=== PATIENT | male | born 1950 | race Caucasian/White ===

== ENCOUNTER 2020-07-30 10:42 | Inpatient (IN) | payer OTHER ==
[2020-07-30 11:38] LABS: Urine Blood NEGATIVE (NEG); Urine Glucose NEGATIVE (NEG); Urine Protein NEGATIVE (NEG); Urine Specific Gravity 1.025 (1.005-1.030); Urine pH 6.5 (5.0-7.0)
[2020-07-30 11:45] LABS: Absolute Lymphocytes (CBC) 0.4 K/uL (0.7-4.9); Basophils % 0.3 % (0-1.3); Hematocrit 33.8 % (39.6-49.0); Lymphocytes % 4.9 % (15.3-44.8); MPV 7.7 fL (7.6-11.3); RBC Red Blood Cell Count 4.24 M/uL (4.33-5.43)
[2020-07-30] MEDS ORDERED: Levofloxacin500mg IV 500 MG/100 ML BAG IV ONE (11:49)
[2020-07-30] MEDS ORDERED: LEVALBUTEROL 1.25 MG/3 ML NEB ONE (11:49)
[2020-07-30] MEDS ORDERED: IPRATROPIUM BROM 0.5MG/2.5ML ONE (11:49)
[2020-07-30] MEDS ORDERED: METHYLPREDNISOLONE 125 MG INJ ONE (11:49)
[2020-07-30] MEDS ORDERED: NA CHLORIDE 0.9% 1,000 ML ONE ×2 (11:50→12:31)
[2020-07-30 12:01] LABS: ALT/SGPT 15 U/L (12-78); AST/SGOT 24 U/L (15-37); Albumin 3.2 g/dL (3.4-5.0); Alkaline Phosphatase 130 U/L (45-117); BUN Blood Urea Nitrogen 8 mg/dL (7-18); Bicarbonate 24 mmol/L (21-32); Bilirubin Direct < 0.1 mg/dL (0-0.2); Bilirubin Total 0.5 mg/dL (0.2-1.0); Glucose Level 126 mg/dL (74-106); Lipase 32 U/L (73-393); Magnesium 1.9 mg/dL (1.8-2.4); NT PRO-BNP 16402 pg/mL (<125); Protein, Total 6.7 g/dL (6.4-8.2); Sodium Level 137 mmol/L (136-145); Troponin (Emerg Dept Use Only) 0.06 ng/mL (0.0-0.045)
[2020-07-30 12:20] LABS: Blood Morphology Comment NOT SEEN (NOT SEEN); Platelet Estimate ADEQ
--- NOTE | 2020-07-30 12:20 | EDPHYS ---
Physician Documentation [facility] Name: Lucian Colon Age: 69 yrs Sex: Male : 1950 Arrival Date: 07/30/2020 Time: 10:45 Bed 2 Private MD: CASSANDRA Physician Dontrell Mccallum HPI: 07/30 11:14 This 69 yrs old Male presents to ER via EMS with complaints of weak and karine coughing. 11:14 The patient has shortness of breath with light activity. Onset: The symptoms/episode karine began/occurred 2 day(s) ago. Duration: The symptoms are continuous, and are steadily getting worse. The patient's shortness of breath is aggravated by coughing, is alleviated by elevating head. The patient or guardian reports cough, described as mild, described as moderate, difficulty breathing, flu symptoms, arthralgias, myalgias, no appetite. Modifying factors: The symptoms are alleviated by nothing. the symptoms are aggravated by nothing. Associated signs and symptoms: Pertinent positives: non-productive cough, dizziness. Severity of symptoms: At their worst the symptoms were moderate in the emergency department the symptoms have improved mildly. Historical: - Allergies: 11:07 No Known Allergies; jl7 - Home Meds: 11:07 folic acid 1 mg Oral tab 1 tab once daily [Active]; Chantix 1 mg oral tab 1 tab 2 times jl7 per day [Active]; citalopram 20 mg tab 1 tab once daily [Active]; [place] 10-325 mg Oral tab 1 tab every 6 hours [Active]; Plavix 75 mg Oral tab 1 tab once daily [Active]; 11:09 dronabinol 2.5 mg oral cap 2 caps once daily [Active]; pantoprazole 40 mg oral TbEC 1 jl7 tab once daily [Active]; Combivent Inhl [Active]; nadolol 20 mg oral tab 1 tab once daily [Active]; - PMHx: 11:07 COPD; Cancer; Liver; Hepatitis; C; jl7 11:09 Hypertension; Cirrhosis; jl7 - PSHx: 11:07 Heart stents; jl7 - Immunization history:: Adult Immunizations not up to date. - Social history:: Smoking status: Patient reports the use of cigarette tobacco products, smokes one-half pack cigarettes per day. - Family history:: not pertinent. ROS: 11:14 Constitutional: Negative for fever, chills, and weight loss, Eyes: Negative for injury, karine pain, redness, and discharge, ENT: Negative for injury, pain, and discharge, Neck: Negative for injury, pain, and swelling, Abdomen/GI: Negative for abdominal pain, nausea, vomiting, diarrhea, and constipation, Back: Negative for injury and pain, : Negative for injury, bleeding, discharge, and swelling, MS/Extremity: Negative for injury and deformity, Skin: Negative for injury, rash, and discoloration, Neuro: Negative for headache, weakness, numbness, tingling, and seizure, Psych: Negative for depression, anxiety, suicide ideation, homicidal ideation, and hallucinations, Allergy/Immunology: Negative for hives, rash, and allergies, Endocrine: Negative for neck swelling, polydipsia, polyuria, polyphagia, and marked weight changes, Hematologic/Lymphatic: Negative for swollen nodes, abnormal bleeding, and unusual bruising. 11:14 Cardiovascular: Positive for chest pain. 11:14 Respiratory: Positive for cough, "sounds productive", shortness of breath, at rest. wheezing, inspiratory, expiratory. Exam: 11:14 Constitutional: This is a well developed, well nourished patient who is awake, alert, karine and in no acute distress. Head/Face: Normocephalic, atraumatic. Eyes: Pupils equal round and reactive to light, extra-ocular motions intact. Lids and lashes normal. Conjunctiva and sclera are non-icteric and not injected. Cornea within normal limits. Periorbital areas with no swelling, redness, or edema. ENT: Nares patent. No nasal discharge, no septal abnormalities noted. Tympanic membranes are normal and external auditory canals are clear. Oropharynx with no redness, swelling, or masses, exudates, or evidence of obstruction, uvula midline. Mucous membranes moist. Neck: Trachea midline, no thyromegaly or masses palpated, and no cervical lymphadenopathy. Supple, full range of motion without nuchal rigidity, or vertebral point tenderness. No Meningismus. Chest/axilla: Normal chest wall appearance and motion. Nontender with no deformity. No lesions are appreciated. Abdomen/GI: Soft, non-tender, with normal bowel sounds. No distension or tympany. No guarding or rebound. No evidence of tenderness throughout. Back: No spinal tenderness. No costovertebral tenderness. Full range of motion. Male : Normal genitalia with no discharge or lesions. Skin: Warm, dry with normal turgor. Normal color with no rashes, no lesions, and no evidence of cellulitis. MS/ Extremity: Pulses equal, no cyanosis. Neurovascular intact. Full, normal range of motion. Neuro: Awake and alert, GCS 15, oriented to person, place, time, and situation. Cranial nerves II-XII grossly intact. Motor strength 5/5 in all extremities. Sensory grossly intact. Cerebellar exam normal. Normal gait. Psych: Awake, alert, with orientation to person, place and time. Behavior, mood, and affect are within normal limits. 11:14 Cardiovascular: Rate: tachycardic, Rhythm: regular, Pulses: Pulses are 4+ in bilateral radial, brachial, femoral, popliteal, posterior tibial and and dorsalis pedis arteries.. Heart sounds: normal, Edema: is not appreciated, JVD: is not appreciated. 11:14 Musculoskeletal/extremity: DVT Exam: No signs of deep vein thrombosis. no pain, no swelling, no tenderness, negative Homans' sign noted on exam, no appreciated bluish discoloration, no erythema, no increased warmth. 14:41 ECG was reviewed by the Attending Physician. [facility] 14:43 ECG was reviewed by the Attending Physician. [facility] Vital Signs: 10:57 BP 171 / 97; Pulse 107; Resp 21 S; Temp 97.8(O); Pulse Ox 96% on R/A; Weight 58.97 kg jl7 (R); Height 5 ft. 6 in. (167.64 cm) (R); Pain 0/10; 11:30 BP 155 / 83; Pulse 83; Resp 19 S; Pulse Ox 89% on R/A; Pain 0/10; jl7 12:32 BP 147 / 92; Pulse 87; Resp 21 S; Pulse Ox 100% on 1 lpm NC; jl7 13:30 BP 154 / 80; Pulse 101; Resp 20; Pulse Ox 95% 1 lpm ; jl7 14:00 BP 171 / 91; Pulse 109; Resp 32 S; Pulse Ox 91% on Non-rebreather mask; jl7 14:15 BP 160 / 107; Pulse 104; Resp 29; Pulse Ox 90% on Non-rebreather mask; jl7 14:30 BP 149 / 84; Pulse 108; Resp 27 A; Pulse Ox 94% on BiPAP; jl7 15:00 BP 139 / 80; Pulse 107; Resp 25; Pulse Ox 96% on BiPAP; jl7 16:00 BP 141 / 85; Pulse 90; Resp 24; Pulse Ox 99% on BiPAP; jl7 17:00 BP 135 / 84; Pulse 85; Resp 19; Pulse Ox 100% on BiPAP; 7 10:57 Body Mass Index 20.98 (58.97 kg, 167.64 cm) 7 MDM: 10:45 Patient medically screened. [facility] 11:19 Differential diagnosis: Anxiety Reaction asthma, Bronchitis CHF exacerbation, Chronic karine Obstructive Pulmonary Disease obstructed airway, bronchitis, flu, URI, pneumonia, pulmonary edema, reactive airway disease, Sepsis Unstable Angina. Antibiotic administration: Levaquin given. Differential Diagnosis sepsis. The patient's Wells Deep Vein Thrombosis Score was calculated as follows: Heart Rate >100 BPM (1.5 Pts) Total Score: 0-2 Pts- Low Risk. The patient's pulmonary embolism risk score was calculated as follows: the patients heart rate is greater than 100 beats per minute (1.5 Pts) Total Score: 0-2 points. This patient was found to be at low risk for a pulmonary embolism by using the Well's assessment criteria. Immunization status: Pneumococcal vaccine: Influenza vaccine: Data reviewed: vital signs, nurses notes, lab test result(s), EKG, radiologic studies, plain films. Data interpreted: cnc service engineer: rate is 107 beats/min, rhythm is regular, Pulse oximetry: on room air is 96 %. Test interpretation: by ED physician or midlevel provider: ECG, plain radiologic studies. 07/30 11:07 Order name: Basic Metabolic Panel; Complete Time: 12:02 [facility] 07/30 11:07 Order name: CBC with Diff; Complete Time: 13:06 [facility] 07/30 11:07 Order name: LFT's; Complete Time: 12:02 [facility] 07/30 11:07 Order name: Magnesium; Complete Time: 12:02 [facility] 07/30 11:07 Order name: NT PRO-BNP; Complete Time: 12:02 [facility] 07/30 11:07 Order name: Troponin (emerg Dept Use Only); Complete Time: 12:02 [facility] 07/30 11:07 Order name: Lipase; Complete Time: 12:02 [facility] 07/30 11:07 Order name: Blood Culture Adult (2) [facility] 07/30 11:07 Order name: Lactate; Complete Time: 12:16 [facility] 07/30 11:36 Order name: Urine Dipstick--Ancillary (enter results); Complete Time: 12:02 07/30 12:20 Order name: Manual Differential; Complete Time: 13:06 [facility] 07/30 14:41 Order name: Lactate Sepsis 2 HR Follow-up; Complete Time: 14:55 [facility] 07/30 14:54 Order name: COVID-19 [facility] 07/30 15:29 Order name: CORONAVIRUS [facility] 07/30 11:07 Order name: XRAY Chest (1 view); Complete Time: 13:06 [facility] 07/30 12:32 Order name: Chest Angio [facility] 07/30 14:57 Order name: BIPAP 07/30 16:25 Order name: SARS-COV-2 RT PCR [facility] 07/30 11:07 Order name: EKG; Complete Time: 11:08 [facility] 07/30 11:07 Order name: Cardiac monitoring; Complete Time: 11:11 [facility] 07/30 11:07 Order name: EKG - Nurse/Tech; Complete Time: 12:11 [facility] 07/30 11:07 Order name: IV Saline Lock; Complete Time: 12:11 [facility] 07/30 11:07 Order name: Labs collected and sent; Complete Time: 12:11 [facility] 07/30 11:07 Order name: O2 Per Protocol; Complete Time: 11:11 [facility] 07/30 11:07 Order name: O2 Sat Monitoring; Complete Time: 11:11 [facility] 07/30 11:07 Order name: Urine Dipstick-Ancillary (obtain specimen); Complete Time: 11:31 [facility] 07/30 14:38 Order name: Justin; Complete Time: 14:38 [facility] 07/30 14:39 Order name: EKG - Nurse/Tech; Complete Time: 14:39 [facility] 07/30 14:39 Order name: EKG; Complete Time: 14:39 EC:41 Rate is 83 beats/min. QT interval is normal. No Q waves. T waves are Normal. No ST karine changes noted. Clinical impression: NSR w/ Non-specific ST/T Changes and No evidence of ischemia. Interpreted by me. Reviewed by me. 14:43 Rate is 96 beats/min. Rhythm is regular. QRS [place] is Normal. VT interval is normal. QRS karine interval is normal. QT interval is normal. No Q waves. T waves are Normal. No ST changes noted. Clinical impression: NSR w/ Non-specific ST/T Changes and No evidence of ischemia. Interpreted by me. Reviewed by me. Administered Medications: 11:50 Drug: NS 0.9% 500 ml Route: IV; Rate: bolus; Site: left forearm; jl7 12:50 Follow up: Response: No adverse reaction; IV Status: Completed infusion; IV Intake: jl7 500ml 11:50 Drug: NS 0.9% 1000 ml Route: IV; Rate: 125 ml/hr; Site: left forearm; jl7 11:50 Drug: SOLU-Medrol 2 mg/kg Route: IVP; Site: left forearm; jl7 12:00 Follow up: Response: No adverse reaction 7 11:55 Drug: levofloxacin 500 mg Volume: 100 ml; Route: IVPB; Infused Over: 60 mins; Site: jl7 left forearm; 12:55 Follow up: Response: No adverse reaction; IV Status: Completed infusion jl7 12:00 Drug: Xopenex 1.25 mg Route: Inhalation; jl7 12:26 Follow up: Response: No adverse reaction 7 12:00 Drug: AtroVENT Aerosol 0.5 mg Route: Inhalation; jl7 12:26 Follow up: Response: No adverse reaction 7 12:25 Drug: NS 0.9% 1000 ml Route: IV; Rate: 1 bolus; Site: left forearm; jl7 13:45 Follow up: IV Status: Completed infusion; IV Intake: 1000ml jl7 14:10 Drug: Lovenox 50 mg Route: Sub-Q; Site: abdomen; jl7 17:07 Follow up: Response: No adverse reaction jl7 14:10 Drug: Lasix 40 mg Route: IVP; Site: left forearm; jl7 17:07 Follow up: Response: No adverse reaction jl7 14:15 Drug: Pepcid 20 mg Route: IVP; Site: left forearm; jl7 17:08 Follow up: Response: No adverse reaction jl7 14:15 Drug: Nitro-Bid Ointment 2 % 1 inches Route: Transdermal; Site: anterior chest wall; jl7 14:20 Drug: morphine 2 mg Route: IVP; Site: left forearm; jl7 14:30 Follow up: Response: No adverse reaction; Pain is decreased jl7 14:20 Drug: Zofran (Ondansetron) 4 mg Route: IVP; Site: left forearm; jl7 17:07 Follow up: Response: No adverse reaction jl7 Disposition: 07/30/20 12:19 Hospitalization ordered by Prince Paige for Inpatient Admission. Preliminary diagnosis are Pneumonia, unspecified organism, Chronic obstructive pulmonary disease with (acute) exacerbation, Anorexia, Tobacco abuse counseling, Tobacco use, Essential (primary) hypertension, Systolic (congestive) heart failure. - Bed requested for Telemetry/MedSurg (Inpatient). - Status is Inpatient Admission. iw - Condition is Fair. - Problem is new. - Symptoms have improved. Signatures: Dispatcher [employer] Jerilyn Escoto RN RN dw Anderson, Corey, MD MD cha Williams, Irene, RN RN iw Leal, Jahala, RN RN jl7 Corrections: (The following items were deleted from the chart) 12:24 12:19 Hospitalization Ordered by Nicho Chandler MD for Inpatient Admission. Preliminary [facility] diagnosis is Pneumonia, unspecified organism; Chronic obstructive pulmonary disease with (acute) exacerbation; Anorexia; Tobacco abuse counseling; Tobacco use. Bed requested for Telemetry/MedSurg (Inpatient). Status is Inpatient Admission. Condition is Fair. Problem is new. Symptoms have improved. [facility] 14:34 12:24 07/30/2020 12:19 Hospitalization Ordered by Prince Paige HILL for Inpatient karine Admission. Preliminary diagnosis is Pneumonia, unspecified organism; Chronic obstructive pulmonary disease with (acute) exacerbation; Anorexia; Tobacco abuse counseling; Tobacco use. Bed requested for Telemetry/MedSurg (Inpatient). Status is Inpatient Admission. Condition is Fair. Problem is new. Symptoms have improved. [facility] 16:46 14:34 07/30/2020 12:19 Hospitalization Ordered by Prince Paige [facility]ILL for Inpatient dw Admission. Preliminary diagnosis is Pneumonia, unspecified organism; Chronic obstructive pulmonary disease with (acute) exacerbation; Anorexia; Tobacco abuse counseling; Tobacco use; Essential (primary) hypertension; Systolic (congestive) heart failure. Bed requested for Telemetry/MedSurg (Inpatient). Status is Inpatient Admission. Condition is Fair. Problem is new. Symptoms have improved. karine 17:54 16:46 07/30/2020 12:19 Hospitalization Ordered by Prince Paige [facility] for Inpatient iw Admission. Preliminary diagnosis is Pneumonia, unspecified organism; Chronic obstructive pulmonary disease with (acute) exacerbation; Anorexia; Tobacco abuse counseling; Tobacco use; Essential (primary) hypertension; Systolic (congestive) heart failure. Bed requested for Telemetry/MedSurg (Inpatient). Status is Inpatient Admission. Condition is Fair. Problem is new. Symptoms have improved. dw
--- NOTE | 2020-07-30 12:20 | ER ---
Nurse's Notes [facility] Name: Lucian Colon Age: 69 yrs Sex: Male : 1950 Arrival Date: 07/30/2020 Time: 10:45 Bed 2 Private MD: Diagnosis: Pneumonia, unspecified organism;Chronic obstructive pulmonary disease with (acute) exacerbation;Anorexia;Tobacco abuse counseling;Tobacco use;Essential (primary) hypertension;Systolic (congestive) heart failure Presentation: 07/30 10:57 Chief complaint: EMS states: SOB started this morning; tested negative for COVID 2 days jl7 ago. Coronavirus screen: Client denies travel out of the [place] in the last 14 days. cough unrelated to allergies, shortness of breath, The client reports previous COVID testing was negative. Date of collection: July 28, 2020. Ebola Screen: No symptoms or risks identified at this time. Initial Sepsis Screen: Does the patient meet any 2 criteria? No. Patient's initial sepsis screen is negative. Does the patient have a suspected source of infection? No. Patient's initial sepsis screen is negative. Risk Assessment: Do you want to hurt yourself or someone else? Patient reports no desire to harm self or others. Onset of symptoms was July 30, 2020. Care prior to arrival: Medication(s) given: Albuterol Neb Atrovent Neb. Transition of care: patient was not received from another setting of care. 10:57 Method Of Arrival: EMS: [facility] jl7 10:57 Acuity: LJ 2 jl7 Triage Assessment: 10:45 General: Appears in no apparent distress. uncomfortable, Behavior is calm, cooperative, jl7 appropriate for age. Pain: Denies pain. Neuro: Level of Consciousness is awake, alert, obeys commands, Oriented to person, place, time, situation. Cardiovascular: Patient's skin is warm and dry. Chest pain is denied. Respiratory: Airway is patent Respiratory effort is even, labored, Respiratory pattern is symmetrical, tachypnea Breath sounds are diminished bilaterally. Derm: Skin is pink, warm \T\ dry. Historical: - Allergies: 11:07 No Known Allergies; jl7 - Home Meds: 11:07 folic acid 1 mg Oral tab 1 tab once daily [Active]; Chantix 1 mg oral tab 1 tab 2 times jl7 per day [Active]; citalopram 20 mg tab 1 tab once daily [Active]; [place] 10-325 mg Oral tab 1 tab every 6 hours [Active]; Plavix 75 mg Oral tab 1 tab once daily [Active]; 11:09 dronabinol 2.5 mg oral cap 2 caps once daily [Active]; pantoprazole 40 mg oral TbEC 1 jl7 tab once daily [Active]; Combivent Inhl [Active]; nadolol 20 mg oral tab 1 tab once daily [Active]; - PMHx: 11:07 COPD; Cancer; Liver; Hepatitis; C; jl7 11:09 Hypertension; Cirrhosis; jl7 - PSHx: 11:07 Heart stents; jl7 - Immunization history:: Adult Immunizations not up to date. - Social history:: Smoking status: Patient reports the use of cigarette tobacco products, smokes one-half pack cigarettes per day. - Family history:: not pertinent. Screenin:45 Abuse screen: Denies threats or abuse. Denies injuries from another. Nutritional jl7 screening: No deficits noted. Tuberculosis screening: No symptoms or risk factors identified. Fall Risk IV access (20 points). Total Davies Fall Scale indicates No Risk (0-24 pts). Assessment: 10:45 General: See triage assessment. Daughter at bedside. jl7 12:43 Reassessment: Hospitalist at bedside assessing pt. jl7 13:00 Reassessment: Patient appears in no apparent distress at this time. Patient and/or jl7 family updated on plan of care and expected duration. Pain level reassessed. Patient is alert, oriented x 3, equal unlabored respirations, skin warm/dry/pink. Patient denies pain at this time. 14:00 Reassessment: Pt transported to CT via stretcher, it help desk technician returned immediately with pt jl7 c/o difficulty breathing. Pt appeared distressed, pulse ox at 82% and decreasing, placed pt on nonrebreather. Pt denies chest pain. Notified Dr. Mccallum, see orders for orders. Vital Signs: 10:57 BP 171 / 97; Pulse 107; Resp 21 S; Temp 97.8(O); Pulse Ox 96% on R/A; Weight 58.97 kg jl7 (R); Height 5 ft. 6 in. (167.64 cm) (R); Pain 0/10; 11:30 BP 155 / 83; Pulse 83; Resp 19 S; Pulse Ox 89% on R/A; Pain 0/10; jl7 12:32 BP 147 / 92; Pulse 87; Resp 21 S; Pulse Ox 100% on 1 lpm NC; jl7 13:30 BP 154 / 80; Pulse 101; Resp 20; Pulse Ox 95% 1 lpm ; jl7 14:00 BP 171 / 91; Pulse 109; Resp 32 S; Pulse Ox 91% on Non-rebreather mask; jl7 14:15 BP 160 / 107; Pulse 104; Resp 29; Pulse Ox 90% on Non-rebreather mask; jl7 14:30 BP 149 / 84; Pulse 108; Resp 27 A; Pulse Ox 94% on BiPAP; jl7 15:00 BP 139 / 80; Pulse 107; Resp 25; Pulse Ox 96% on BiPAP; jl7 16:00 BP 141 / 85; Pulse 90; Resp 24; Pulse Ox 99% on BiPAP; jl7 17:00 BP 135 / 84; Pulse 85; Resp 19; Pulse Ox 100% on BiPAP; jl7 10:57 Body Mass Index 20.98 (58.97 kg, 167.64 cm) jl7 ED Course: 10:45 Patient arrived in ED. iw 10:45 Dontrell Mccallum MD is Attending Physician. karine 10:45 Arm band placed on right wrist. jl7 10:45 Patient has correct armband on for positive identification. Placed in gown. Bed in low jl7 position. Call light in reach. Side rails up X2. telephone collector on. Pulse ox on. NIBP on. Warm blanket given. 10:50 Tia Hernandez RN is Primary Nurse. jl7 11:01 Triage completed. jl7 11:32 Inserted saline lock: 20 gauge in left forearm, using aseptic technique. Blood jl7 collected. 11:32 Initial lab(s) drawn, by dc, sent to lab. First set of blood cultures drawn by me. jl7 11:42 XRAY Chest (1 view) In Process Unspecified. EDMS 11:50 Second set of blood cultures drawn by me. jl7 12:18 Nicho Chandler MD is Hospitalizing Provider. karine 12:24 Prince Gibson MD is Hospitalizing Provider. karine 14:05 EKG done, by ED staff, reviewed by Dontrell Mccallum MD. dh3 14:30 Justin cath inserted, using sterile technique, 16 Fr., by dc, balloon inflated, to jl7 gravity drainage. 17:08 Radiology exam delayed due to pt unable to lay flat at all. pt diaphoretic when trying mw3 to lay down and O2 dropped into 80's. 17:53 No provider procedures requiring assistance completed. Patient admitted, IV remains in iw place. Administered Medications: 11:50 Drug: NS 0.9% 500 ml Route: IV; Rate: bolus; Site: left forearm; jl7 12:50 Follow up: Response: No adverse reaction; IV Status: Completed infusion; IV Intake: jl7 500ml 11:50 Drug: NS 0.9% 1000 ml Route: IV; Rate: 125 ml/hr; Site: left forearm; jl7 11:50 Drug: SOLU-Medrol 2 mg/kg Route: IVP; Site: left forearm; jl7 12:00 Follow up: Response: No adverse reaction jl7 11:55 Drug: levofloxacin 500 mg Volume: 100 ml; Route: IVPB; Infused Over: 60 mins; Site: jl7 left forearm; 12:55 Follow up: Response: No adverse reaction; IV Status: Completed infusion jl7 12:00 Drug: Xopenex 1.25 mg Route: Inhalation; jl7 12:26 Follow up: Response: No adverse reaction jl7 12:00 Drug: AtroVENT Aerosol 0.5 mg Route: Inhalation; jl7 12:26 Follow up: Response: No adverse reaction jl7 12:25 Drug: NS 0.9% 1000 ml Route: IV; Rate: 1 bolus; Site: left forearm; jl7 13:45 Follow up: IV Status: Completed infusion; IV Intake: 1000ml jl7 14:10 Drug: Lovenox 50 mg Route: Sub-Q; Site: abdomen; jl7 17:07 Follow up: Response: No adverse reaction jl7 14:10 Drug: Lasix 40 mg Route: IVP; Site: left forearm; jl7 17:07 Follow up: Response: No adverse reaction jl7 14:15 Drug: Pepcid 20 mg Route: IVP; Site: left forearm; jl7 17:08 Follow up: Response: No adverse reaction jl7 14:15 Drug: Nitro-Bid Ointment 2 % 1 inches Route: Transdermal; Site: anterior chest wall; jl7 14:20 Drug: morphine 2 mg Route: IVP; Site: left forearm; jl7 14:30 Follow up: Response: No adverse reaction; Pain is decreased jl7 14:20 Drug: Zofran (Ondansetron) 4 mg Route: IVP; Site: left forearm; jl7 17:07 Follow up: Response: No adverse reaction jl7 Intake: 12:50 IV: 500ml; Total: 500ml. jl7 13:45 IV: 1000ml; Total: 1500ml. jl7 Outcome: 12:19 Decision to Hospitalize by Provider. karine 17:53 Admitted to Med/surg accompanied by nurse, via stretcher, room 213, with oxygen, with iw chart. 17:53 Condition: good 17:53 Discharge instructions given to patient, Instructed on the need for admit, Demonstrated understanding of instructions. 17:54 Patient left the ED. iw Signatures: Dispatcher [employer] EDDontrell Benson MD MD cha Williams, Irene RN IGGY Tia Hernandez RN RN [place] [facility] Yusra Sanchez 3
--- NOTE | 2020-07-30 12:26 | RAD REPORT ---
EXAM DESCRIPTION: RAD - Chest Single View - 07/30/2020 11:42 am CLINICAL HISTORY: COUGH Chest pain. COMPARISON: No comparisons FINDINGS: Portable technique limits examination quality. Prominent emphysematous pattern is present bilaterally with moderate interstitial prominence. Interst itial opacities could indicate a chronic bronchitis or viral bronchitis. The heart is normal in size. No displaced fractures.
[2020-07-30] MEDS ORDERED: FAMOTIDINE 20 MG/2 ML VIAL IV ONE (12:50)
[2020-07-30] MEDS ORDERED: ENOXAPARIN 60 MG/0.6 ML SQ ONE (12:51)
--- NOTE | 2020-07-30 13:15 | P.HP ---
Certification for Inpatient Patient admitted to: Inpatient With expected LOS: >2 Midnights Practitioner: I am a practitioner with admitting privileges, knowledge of patient current condition, hospital course, and medical plan of care. Services: Services provided to patient in accordance with Admission requirements found in Title 42 Section 412.3 of the Code of Federal Regulations Patient History Date of Service: 07/31/20 Reason for admission: shortness of breath History of Present Illness: Patient is a 69-year-old male with a known past medical history of tobacco smoking, COPD, liver disease diagnosed 4 years ago and previously on chemotherapy. He present to the ER accompanied by daughter with an acute onset of shortness of breath. Patient states that he has been experiencing some generalized malaise and was getting easy fatigue. The symptoms progressed where he could no longer move out of bed without getting severely short of breath. Other associated symptoms include chills and possibly subjective fever. He has not noticed a drastic change from his usual cough. Patient is an active smoker and smokes daily although he is now down to < 1 ppd. He follows up with his PCP and oncologist Amie Raymond at [facility]. Daughter states that they are currently considering hospice care but this has not been finalized yet as patient just recently moved in with her. Allergies No Known Allergies Allergy (Unverified 07/30/20 18:09) Home Medications: Aspirin [Aspirin EC 325 MG] 325 mg PO DAILY 07/30/20 Clopidogrel Bisulfate [Plavix] 75 mg PO DAILY 07/30/20 Cyanocobalamin [Vitamin B-12] 1,000 mcg PO DAILY 07/30/20 Hydrocodone 10/APAP 325 [[place] 10/325] 1 tab PO Q6H PRN 07/30/20 Ipratropium/Albuterol Sulfate [Combivent Respimat Inhal [place]] 4 gm IH PRN PRN 07/30/20 Pantoprazole [Protonix Tab] 40 mg PO DAILY 07/30/20 RX: Folic Acid 1 mg PO DAILY 07/30/20 dronabinoL [Dronabinol] 2.5 mg PO BID 07/30/20 nadoloL [Nadolol] 20 mg PO DAILY 07/30/20 Physical Examination - Physical Exam General: Cachectic, Moderate distress, Other (visibly winded) HEENT: Atraumatic, Normocephalic, Other (temporal wasting), EOMI Neck: Supple Respiratory: Diminished, Crackles/rales, Other (No wheezing heard but crackles in the R lung simons) Cardiovascular: No edema, Normal pulses, Regular rate/rhythm, Normal S1 S2 Musculoskeletal: Other (bilateral lower extremity sarcopenia) Neurological: Normal speech, Sensation intact, Normal affect - Studies Laboratory Data (last 24 hrs) 07/30/20 11:32: WBC 8.0, Hgb 10.9 L, Hct 33.8 L, Plt Count 333 07/30/20 11:32: Sodium 137, Potassium 4.0, BUN 8, Creatinine 0.52 L, Glucose 126 H, Magnesium 1.9, Total Bilirubin 0.5, AST 24, ALT 15, Alkaline Phosphatase 130 H, Lipase 32 L Assessment and Plan - Problems (Diagnosis) (1) Acute hypoxemic respiratory failure Current Visit: Yes Status: Acute (2) COPD exacerbation Current Visit: Yes Status: Acute (3) Liver cancer Current Visit: Yes Status: Acute (4) Tobacco smoker, 1 pack of cigarettes or less per day Current Visit: Yes Status: Acute (5) Severe protein-calorie malnutrition (Gallagher: less than 60% of standard weight) Current Visit: Yes Status: Acute - Advance Directives Does patient have a Living Will: No Does patient have a Durable POA for Healthcare: No Physician Review Additional Text: Assessment 69 year old male with a PMH of tobacco smoking, COPD, liver malignancy admitted with acute hypoxemic respiratory failure. CXR is concerning for viral bronchitis vs. chronic bronchitis. He is being admitted with a working ileana gnosis of COPD exacerbation. Acute hypoxemic respiratory failure Tobacco smoking COPD exacerbation Lactic acidosis Liver cancer Severe malnutrition PLAN: Admit inpatient with telemetry CTA chest and echocardiogram to r/o PE and pulmonary HTN respectively. Patient received a 1 L bolus of NS Trend lactic acid every 4 hours Follow up blood cultures Trend troponin every 6 hours Obtain an EKG Continue levofloxacin, solumedrol and duoNebs I will order a nutrition and hospice consult while in-house. Continue home dose of dronabinol
[2020-07-30] MEDS ORDERED: FUROSEMIDE 40 MG/4 ML VIAL ONE (14:06)
[2020-07-30] MEDS ORDERED: ONDANSETRON 4 MG/2 ML VIAL ONE (14:11)
[2020-07-30] MEDS ORDERED: NITROGLYCERIN 1 GM PKT TD ONE (14:11)
[2020-07-30] MEDS ORDERED: MORPHINE 2 MG/ML SYR ONE (14:11)
[2020-07-30] MEDS ORDERED: ASPIRIN 81 MG CHEWABLE TABLET ONE (17:35)
[2020-07-30] MEDS: ALBUTEROL 2.5 MG/3 ML NEB SOL NEB SCH ×2 (18:11→20:00)
[2020-07-30] MEDS: IPRATROPIUM BROM 0.5MG/2.5ML NEB SCH ×2 (18:11→20:00)
[2020-07-30] MEDS: METHYLPREDNISOLONE 125 MG INJ IV SCH (18:27)
[2020-07-30 22:53] VITALS: BMI 20.9
[2020-07-30] MEDS ORDERED: ACETAMINOPHEN 500 MG TAB PO PRN (23:19)
[2020-07-30] MEDS: ESZOPICLONE 1 MG TAB PO PRN (23:44)
[2020-07-31] MEDS: METHYLPREDNISOLONE 125 MG INJ IV SCH ×3 (00:05→16:16)
[2020-07-31] MEDS: ALBUTEROL 2.5 MG/3 ML NEB SOL NEB SCH ×6 (00:26→20:50)
[2020-07-31] MEDS: IPRATROPIUM BROM 0.5MG/2.5ML NEB SCH ×6 (00:26→20:50)
[2020-07-31] MEDS ORDERED: Levofloxacin 750mg IV 750 MG/150 ML BAG IV SCH (07:00)
--- NOTE | 2020-07-31 07:25 | EKG ---
Test Date: 2020-07-30 Test Time: 13:11:20 Architecture Manager: LOC MEASUREMENT RESULTS: Intervals: Rate: 88 VA: 132 QRSD: 148 QT: 454 QTc: 549 [place]: P: 64 VA: 132 QRS: 78 T: 45 INTERPRETIVE STATEMENTS: Normal sinus rhythm Possible Left atrial enlargement Nonspecific intraventricular block Abnormal ECG Compared to ECG 07/30/2020 11:17:59 Left ventricular hypertrophy no longer present Myocardial infarct finding no longer present Electronically Signed On 07-31-20 07:23:24 WELDER MACHINE OPERATOR by Jon Aburto
--- NOTE | 2020-07-31 07:25 | EKG ---
Test Date: 2020-07-30 Test Time: 11:17:59 Toll Line Inspector: LOC MEASUREMENT RESULTS: Intervals: Rate: 83 VT: 154 QRSD: 102 QT: 400 QTc: 470 [place]: P: 67 VT: 154 QRS: 76 T: 57 INTERPRETIVE STATEMENTS: Normal sinus rhythm Moderate voltage criteria for LVH, may be normal variant Cannot rule out Septal infarct, age undetermined Abnormal ECG No previous ECG available for comparison Electronically Signed On 07-31-20 07:23:28 MEDICAL GENETICS DIRECTOR by Jon Aburto
[2020-07-31] MEDS ORDERED: INFLUENZA VACCINE (for 3y+) 0.5 ML DOSE IMVAC ONE (08:00)
[2020-07-31] MEDS ORDERED: PNEUMOCOCCAL VACCINE 0.5 ML IMVAC ONE (08:00)
--- NOTE | 2020-07-31 12:23 | P.PN ---
Subjective Date of Service: 07/31/20 Chief Complaint: shortness of breath Patient states he feels much better. He does have a productive cough. No fever. He denies chest pain. He reports loss of appetite. Physical Examination - Vital Signs Temperature: 97 F Blood Pressure: 120/66 Pulse: 101 Respirations: 20 Pulse Ox (%): 99 - Physical Exam General: Alert, In no apparent distress, Cachectic HEENT: Mucous membr. moist/pink, Sclerae nonicteric Neck: Supple, JVD not distended Respiratory: Diminished (Bilateral), Crackles/rales (Mild scattered rhonchi.) Cardiovascular: No edema, Regular rate/rhythm, Normal S1 S2 Capillary refill: <2 Seconds Gastrointestinal: Normal bowel sounds, Soft and benign, No tenderness Musculoskeletal: No swelling, No erythema Integumentary: No rashes Neurological: Normal strength at 5/5 x4 extr, Cranial nerves 3-12 intact - Studies Laboratory Data (last 24 hrs) 07/30/20 11:32: WBC 8.0, Hgb 10.9 L, Hct 33.8 L, Plt Count 333 Assessment And Plan - Current Problems (Diagnosis) (1) Acute hypoxemic respiratory failure Current Visit: Yes Status: Acute (2) COPD exacerbation Current Visit: Yes Status: Acute (3) Liver cancer Current Visit: Yes Status: Acute (4) Severe protein-calorie malnutrition (Gallagher: less than 60% of standard weight) Current Visit: Yes Status: Acute (5) Tobacco smoker, 1 pack of cigarettes or less per day Current Visit: Yes Status: Acute - Plan Continue steroid, scheduled bronchodilators and antibiotics for COPD exacerbation. Transitioned to prednisone tomorrow Sputum for Gram stain and culture obtained. Follow result Patient is not receiving any chemotherapy. He is looking forward to hospice. Hospice consulted to evaluate. Possible discharge tomorrow after arrangements for hospice is made.
[2020-07-31] MEDS: NICOTINE 21 MG/PAT TD SCH (16:16)
[2020-07-31] MEDS: ENSURE ENLIVE 237 ML CAN PO SCH (21:00)
[2020-07-31] MEDS: ESZOPICLONE 1 MG TAB PO PRN (21:13)
[2020-08-01] MEDS: ALBUTEROL 2.5 MG/3 ML NEB SOL NEB SCH ×5 (00:30→16:00)
[2020-08-01] MEDS: IPRATROPIUM BROM 0.5MG/2.5ML NEB SCH ×5 (00:30→16:00)
[2020-08-01] MEDS: METHYLPREDNISOLONE 125 MG INJ IV SCH ×3 (01:13→17:00)
--- NOTE | 2020-08-01 08:24 | ECHO ---
HEIGHT: 5 ft 6 in WEIGHT: 130 lb 0 oz DATE OF STUDY: 07/31/[address]: Prince Chinyere Gibson MD 2-DIMENSIONAL: YES M.MODE: YES DOPPLER: YES COLOR FLOW: YES TDS: PORTABLE: DEFINITY: BUBBLE STUDY: DIAGNOSIS: CONGESTIVE HEART FAILURE CARDIAC HISTORY: CATHERIZATION: SURGERY: PROSTHETIC VALVE: PACEMAKER: MEASUREMENTS (cm) DIASTOLIC (NORMALS) SYSTOLIC (NORMALS) IVSd 0.8 (0.6-1.2) LA Diam 3.7 (1.9-4.0) LVEF 36% LVIDd 5.5 (3.5-5.7) LVIDs 4.5 (2.0-3.5) %FS 17% LVPWd 1.2 (0.6-1.2) Ao Diam 3.2 (2.0-3.7) 2 DIMENSIONAL ASSESSMENT: RIGHT ATRIUM: NORMAL LEFT ATRIUM: RIGHT VENTRICLE: NORMAL LEFT VENTRICLE: TRICUSPID VALVE: NORMAL MITRAL VALVE: MILD MITRAL REGURGITATION PULMONIC VALVE: NORMAL AORTIC VALVE: MILD AORTIC INSUFFIENCY PERICARDIAL EFFUSION: NONE AORTIC ROOT: LEFT VENTRICULAR WALL MOTION: ANTERIOR, DESI SEPTAL AND APICAL SEVERE HYPOKINESIS. DOPPLER/COLOR FLOW: MILD MITRAL AND TRICUSPID REGURGITATION. COMMENTS: MODERATELY DEPRESSED LEFT VENTRICULAR EJECTION FRACTION 30-35%. SEVERE DESI SEPTAL, APICAL AND ANTERIOR HYPOKINESIS. MILD MITRAL AND TRICUSPID REGURGITATION., PULMONARY HYPERTENSION WITH RIGHT VENTRICULAR SYSTOLIC PRESSURE OF 40-45 mmHg. TECHNOLOGIST: TRUE CARVAJAL
[2020-08-01] MEDS ORDERED: Levofloxacin 750mg IV 750 MG/150 ML BAG IV SCH (09:00)
[2020-08-01] MEDS ORDERED: levoFLOXacin 750 MG TAB PO SCH (09:00)
[2020-08-01] MEDS: NICOTINE 21 MG/PAT TD SCH (09:52)
[2020-08-01] MEDS: ENSURE ENLIVE 237 ML CAN PO SCH ×2 (09:53→20:44)
[2020-08-01 11:43] VITALS: O2SAT 100
--- NOTE | 2020-08-01 12:08 | EKG ---
Test Date: 2020-07-30 Test Time: 13:12:30 Contract Mail Carrier: LOC MEASUREMENT RESULTS: Intervals: Rate: 96 LA: 168 QRSD: 152 QT: 442 QTc: 558 [place]: P: 81 LA: 168 QRS: 80 T: 51 INTERPRETIVE STATEMENTS: Normal sinus rhythm Possible Left atrial enlargement Nonspecific intraventricular block Abnormal ECG Compared to ECG 07/30/2020 13:11:20 No significant changes Electronically Signed On 08-01-20 12:03:35 WRITING MANAGER by Jon Aburto
--- NOTE | 2020-08-01 12:08 | EKG ---
Test Date: 2020-07-30 Test Time: 14:00:49 Safety Supervisor: HAROLDO MEASUREMENT RESULTS: Intervals: Rate: 106 [place]: 140 QRSD: 146 QT: 404 QTc: 536 [place]: P: 70 [place]: 140 QRS: 61 T: 74 INTERPRETIVE STATEMENTS: Sinus tachycardia Possible Left atrial enlargement Left bundle branch block Abnormal ECG Compared to ECG 07/30/2020 13:12:30 Left bundle-branch block now present Sinus rhythm no longer present Electronically Signed On 08-01-20 12:03:35 SUPERCALENDER OPERATOR by Jon Aburto
--- NOTE | 2020-08-01 14:15 | P.DS ---
Admission Date: 07/30/20 Discharge Date: 08/01/20 Disposition: HOSPICE-HOME Discharge Condition: FAIR Reason for Admission: shortness of breath Procedures: CXR (07/30): Prominent emphysematous pattern is present bilaterally with moderate interstitial prominence. Interstitial opacities could indicate a chronic bronchitis or viral bronchitis. The heart is normal in size. No displaced fractures TTE (07/31): moderately depressed LVEF: 30-35%. Severe tatiana-septal, apical, and anterior hypokinesis. mild MR, mild TR, pulmonary hypertension with RVSP: 40- 45mmHg Problem List: Acute hypoxemic respiratory failure Tobacco smoking COPD exacerbation Lactic acidosis Liver cancer Severe protein-calorie malnutrition Brief History of Present Illness: 69yo male, PMH: COPD, nicotine dependence, liver cancer who presented to ED with acute onset of shortness of breath and found to have an acute COPD exacerbation. Hospital Course: He was treated with steroids, nebulizers, and levaquin and had moderate improvement of his symptoms. The patient and daughter reported they were in the process of considering home hospice as well given his h/o liver cancer and COPD. Hospice was consulted and patient was ultimately discharged home on hospice with oxygen. He is to complete 5 more days of levaquin and prednisone. In the ED patient had a [place] catheter placed in order to obtain urine specimen, this was discontinued prior to discharge. Patient without any history of urinary obstruction / incontinence. Vital Signs/Physical Exam: Temp Pulse Resp BP Pulse Ox 97.5 F 91 H 24 H 142/76 H 100 08/01/20 12:00 08/01/20 12:00 08/01/20 12:00 08/01/20 12:00 08/01/20 12:00 General: Alert, In no apparent distress, Cachectic HEENT: Sclerae nonicteric Respiratory: Diminished (at bases), Expiratory wheezes Cardiovascular: No edema, Regular rate/rhythm Gastrointestinal: Soft and benign, Non-distended, No tenderness Musculoskeletal: No tenderness Integumentary: No rashes Neurological: Normal speech, Normal affect Laboratory Data at Discharge: WBC 8.0 K/uL (4.3-10.9) 07/30/20 11:32 Hgb 10.9 g/dL (13.6-17.9) L 07/30/20 11:32 Hct 33.8 % (39.6-49.0) L 07/30/20 11:32 Plt Count 333 K/uL (152-406) 07/30/20 11:32 Sodium 137 mmol/L (136-145) 07/30/20 11:32 Potassium 4.0 mmol/L (3.5-5.1) 07/30/20 11:32 BUN 8 mg/dL (7-18) 07/30/20 11:32 Creatinine 0.52 mg/dL (0.55-1.3) L 07/30/20 11:32 Glucose 126 mg/dL (74-106) H 07/30/20 11:32 Magnesium 1.9 mg/dL (1.8-2.4) 07/30/20 11:32 Total Bilirubin 0.5 mg/dL (0.2-1.0) 07/30/20 11:32 AST 24 U/L (15-37) 07/30/20 11:32 ALT 15 U/L (12-78) 07/30/20 11:32 Alkaline Phosphatase 130 U/L (45-117) H 07/30/20 11:32 Troponin I 0.06 ng/mL (0.0-0.045) H 07/30/20 18:21 Lipase 32 U/L (73-393) L 07/30/20 11:32 Home Medications: Aspirin [Aspirin EC 325 MG] 325 mg PO DAILY 07/30/20 Clopidogrel Bisulfate [Plavix*] 75 mg PO DAILY 07/30/20 Cyanocobalamin [Vitamin B-12*] 1,000 mcg PO DAILY 07/30/20 Folic Acid 1 mg PO DAILY 07/30/20 Hydrocodone 10/APAP 325 [[place] 10/325*] 1 tab PO Q6H PRN 07/30/20 Ipratropium/Albuterol Sulfate [Combivent Respimat 20-100 Mcg] 4 gm IH PRN PRN 07/30/20 Pantoprazole [Protonix Tab*] 40 mg PO DAILY 07/30/20 dronabinoL [Dronabinol] 2.5 mg PO BID 07/30/20 nadoloL [Nadolol] 20 mg PO DAILY 07/30/20 levoFLOXacin [Levaquin*] 750 mg PO DAILY 5 Days #5 tab 08/01/20 predniSONE [Deltasone] 20 mg PO BID 5 Days #10 tab 11/10/20 New Medications: levoFLOXacin [Levaquin*] 750 mg PO DAILY 5 Days #5 tab predniSONE [Deltasone] 20 mg PO BID 5 Days #10 tab Patient Discharge Instructions: discharged to home hospice. medications on discharge: levaquin 750mg daily x 5 days, prednisone 20mg twice a day x 5 days Diet: Regular Activity: Ad diane Followup: OOT,OOT [Primary Care Provider] - Time spent managing pt's care (in minutes): 35
[2020-08-01 16:33] VITALS: BP 139/69; TEMP 97.6
== END 2020-08-01 20:49 | disposition hospice, home (50) | DRG 189 ==
LOC: ER 10:42 → ERHOLD 12:39 → 2ND 17:44
PROVIDERS: ADMIT Internal Medicine; ATTEND Hospitalist
PROC: 5A09457 Assistance with Respiratory Ventilation, 24-96 Consecutive Hours, Continuous Positive Airway Pressure (ICD-10-PCS; principal; 2020-07-30)
DX: J96.01 Acute respiratory failure with hypoxia (principal); E43 Unspecified severe protein-calorie malnutrition; J44.1 Chronic obstructive pulmonary disease with (acute) exacerbation; C22.9 Malignant neoplasm of liver, not specified as primary or secondary; F17.210 Nicotine dependence, cigarettes, uncomplicated; I10 Essential (primary) hypertension; Z79.891 Long term (current) use of opiate analgesic; Z79.02 Long term (current) use of antithrombotics/antiplatelets; Z79.899 Other long term (current) drug therapy; Z68.21 Body mass index [BMI] 21.0-21.9, adult; Z79.52 Long term (current) use of systemic steroids; Z95.5 Presence of coronary angioplasty implant and graft; Z20.828 Contact with and (suspected) exposure to other viral communicable diseases
CPT/HCPCS: 36415; 51702; 71045; 80048; 80076; 81003; 83605; 83690; 83735; 83880; 84484; 85025; 87040; 87070; 87205; 93005; 93306; 94640; 94660; 94760; 96361; 96365; 96372; 96375; 99285; J1650; J1940; J2270; J2405; J2930; J7030; U0003